=== PATIENT | male | born 1955 | race Caucasian/White ===

== ENCOUNTER 2023-09-09 08:35 | Emergency (ER) | payer OTHER, SELFPAY ==
[2023-09-09 08:36] VITALS: BP 184/100
--- NOTE | 2023-09-09 08:47 | EDRN ---
Dr. Rousseau in room w/pt at this time.
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
[2023-09-09 09:05] VITALS: BP 140/101
[2023-09-09] MEDS: NSS 1000 IV (09:09)
[2023-09-09 09:15] VITALS: BMI 28.5
[2023-09-09] MEDS: TORADOL 30 MG IV (09:16)
[2023-09-09] MEDS: OMNIPAQUE 50 ML PO (09:22)
[2023-09-09 09:31] LABS: % Basophils 0.8 % (0-2); % Eosinophils 1.9 % (0-6); % Immature Granulocytes 0.2 % (0-0.5); % Lymphocytes 24.4 % (20.5-51.1); % Monocytes 5.1 % (1.7-9.3); % Neutrophils 67.6 % (42.2-75.2); Absolute Basophils 0.1 10^3/uL (0-0.2); Absolute Eosinophils 0.2 10^3/uL (0-0.7); Absolute Lymphocytes 2.3 10^3/uL (1.2-3.4); Absolute Monocytes 0.5 10^3/uL (0.1-0.6); Absolute Neutrophils 6.4 10^3/uL (1.4-6.5); Hematocrit 40.9 % (39.0-52.0); Hemoglobin 14.3 g/dL (13.0-18.0); Mean Corpuscular Hgb 31.2 pg (27.0-31.0); Mean Corpuscular Volume 89.1 fL (80.0-94.0); Mean Platelet Volume 11.1 fL (7.4-10.4); Nucleated Red Blood Cells % 0 % (-); Platelet Count 184 10^3/uL (130-400); Red Blood Cell Count 4.59 10^6/uL (4.70-6.10); Red Cell Dist. Width 13.4 % (11.5-14.5); White Blood Cell Count 9.5 10^3/uL (4.8-10.8)
[2023-09-09 09:45] LABS: INR 1.13; PT 14.5 Sec (11.4-14.6)
[2023-09-09 09:46] LABS: ALT (SGPT) 53 U/L (0-50); APTT 31.1 Sec (23.4-35.0); AST (SGOT) 92 U/L (17-59); Albumin 4.1 g/dl (3.5-5.0); Alkaline Phosphatase 128 U/L (38-126); Blood Urea Nitrogen 18 mg/dl (9-20); Calcium 9.4 mg/dl (8.4-10.2); Carbon Dioxide 28 mmol/L (22-30); Chloride 100 mmol/L (98-107); Estimated Creatinine Clearance 83 ml/min; Glucose 196 mg/dl (70-99); Lipase 76 U/L (23-300); Potassium 3.9 mmol/L (3.5-5.1); Sodium 136 mmol/L (135-145); Total Bilirubin 0.9 mg/dl (0.2-1.3); Total Protein 7.6 g/dl (6.3-8.2); eGFR > 60.00
[2023-09-09 10:10] VITALS: BP 194/103
[2023-09-09 10:33] LABS: Urine Albumin Negative (Neg - Trace); Urine Bilirubin Negative (Negative); Urine Character Clear (Clear); Urine Color Yellow; Urine Glucose Trace (Negative); Urine Ketone Negative (Negative); Urine Leukocyte Negative (Negative); Urine Nitrite Negative (Negative); Urine Occult Blood Negative (Negative); Urine Specific Gravity 1.015 (<1.030); Urine Urobilinogen Negative (Neg - 1+); Urine pH 6.5 (5.0-9.0)
[2023-09-09 11:00] VITALS: BP 153/103
--- NOTE | 2023-09-09 11:09 | EDRN ---
Pt has completed drinking contrast and awaiting to go to CT at this time.
--- NOTE | 2023-09-09 11:47 | EDRN ---
Dr. Rousseau in to see pt.
[2023-09-09 12:11] VITALS: BP 152/105
== END 2023-09-09 13:30 | disposition home or self-care (01) ==
LOC: EMR 08:35
PROVIDERS: EMERGENCY PHYSICIAN Student in an Organized Health Care Education/Training Program; FAMILY PHYSICIAN Internal Medicine
DX: K59.00 Constipation, unspecified (principal); I10 Essential (primary) hypertension; E11.9 Type 2 diabetes mellitus without complications; Z86.73 Personal history of transient ischemic attack (TIA), and cerebral infarction without residual deficits
CPT/HCPCS: 99284; 96374; 96361; 74177; 80053; 81003; 83690; 85025; 85610; 85730; Q9967

== ENCOUNTER 2024-04-08 14:40 | Emergency (ER) | payer OTHER, SELFPAY ==
[2024-04-08 14:46] VITALS: BP 195/104
[2024-04-08 14:49] VITALS: BP 195/104; BMI 28.9
[2024-04-08 15:00] VITALS: BP 170/98
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
[2024-04-08 17:23] VITALS: BP 167/97
[2024-04-08 17:28] VITALS: BP 167/85
== END 2024-04-08 17:47 | disposition home or self-care (01) ==
LOC: EMR 14:40
PROVIDERS: EMERGENCY PHYSICIAN Emergency Medicine; FAMILY PHYSICIAN Internal Medicine
DX: S22.31XA Fracture of one rib, right side, initial encounter for closed fracture (principal); S49.81XA Other specified injuries of right shoulder and upper arm, initial encounter; S50.811A Abrasion of right forearm, initial encounter; S50.311A Abrasion of right elbow, initial encounter; V29.888A Rider (driver) (passenger) of other motorcycle injured in other specified transport accidents, initial encounter; E11.9 Type 2 diabetes mellitus without complications; I10 Essential (primary) hypertension; I69.920 Aphasia following unspecified cerebrovascular disease; I69.998 Other sequelae following unspecified cerebrovascular disease; R20.2 Paresthesia of skin
CPT/HCPCS: 99284; 71101; 73030; 93005